=== PATIENT | female | born 1935 | race Caucasian/White ===

== ENCOUNTER 2023-08-05 15:41 | Emergency (ER) | payer OTHER ==
[~2023-08-05] VITALS: Ht 152.4 cm; Wt 61.2 kg
[2023-08-05] MEDS ORDERED: TRAMADOL HCL50 MG PO (19:57)
== END 2023-08-05 20:17 | disposition home or self-care (01) ==
LOC: ED 15:41
DX: M25.511 Pain in right shoulder (principal); R07.81 Pleurodynia; M54.9 Dorsalgia, unspecified